=== PATIENT | male | born 1975 | race Caucasian/White ===

== ENCOUNTER 2017-03-26 11:36 | Emergency (ER) | payer OTHER ==
[~2017-03-26] VITALS: Ht 177.8 cm; Wt 95.3 kg
--- NOTE | ~2017-03-26 | CR142 ---
[facility]. [facility] A Service of [facility] RADIOLOGY TEXT RESULTS PATIENT: EDWARD YANEZ LOCATION: SED : 77 UNIT #: [id number] AGE: [address]: Marva Pacheco MD SEX: M ORDER DR: [id number] [address] [id number] E MR#: [id number] Acc #: [id number] NAME: EDWARD YANEZ : 1975 SEX: M STUDY DATE/TIME: 03/26/2017 12:37 UNIT: SED ROOM: STUDY DESCRIPTION: CR Hand Min 3 Views Rt Attending Physician: Marva Pacheco M.D. Ordering Physician: Marva Pacheco M.D. Primary Care Physician: Nena Dsouza M.D. MEDICAL IMAGING REPORT This report is preliminary unless electronic signature is present. EXAM 3 views right hand DATE 03/26/2017 HISTORY Index finger tip injury today, dropped bathtub on his finger. COMPARISON None. FINDINGS There is a soft tissue defect of the distal right second finger at its tip. There is a tiny cortical nondisplaced fracture of the tip of the distal phalanx of the right second finger. No intraarticular fracture extension is seen. There is no joint dislocation. No retained radiopaque foreign body is seen. Remainder of the right hand is normal. IMPRESSION Tiny nondisplaced fracture involving the tuft of the distal phalanx of the right second finger with overlying soft tissue defect or deformity. No joint abnormality. No retained foreign body. Dictated by... Caroline Cuadra M.D. THIS IS AN ELECTRONICALLY VERIFIED REPORT Caroline Cuadra M.D. at 03/27/2017 8:[address] [facility]/to TD: 03/26/2017 16:30 [facility] A Service of [facility] RADIOLOGY TEXT RESULTS PATIENT: EDWARD YANEZ LOCATION: SED : 77 UNIT #: [id number] AGE: [address]: Marva Pacheco MD SEX: M ORDER DR: JOB #: [id number] MEDICAL IMAGING REPORT Page 1 of 1
[2017-03-26] MEDS ORDERED: NO MEDICATIONS (11:50)
== END 2017-03-26 13:53 | disposition home or self-care (01) ==
LOC: SED 11:36
DX: S61.200A Unspecified open wound of right index finger without damage to nail, initial encounter (principal); W22.8XXA Striking against or struck by other objects, initial encounter; Y92.009 Unspecified place in unspecified non-institutional (private) residence as the place of occurrence of the external cause
CPT/HCPCS: 29130; 73130; 90471; 90715; 99283